=== PATIENT | female | born 1985 | race Caucasian/White ===

== ENCOUNTER 2021-08-24 02:05 | Emergency (ER) | payer OTHER, SELFPAY ==
--- NOTE | ~2021-08-24 | CT_ITS ---
EXAMINATION: CT ABDOMEN AND PELVIS WITHOUT CONTRAST CLINICAL INFORMATION: Right flank pain COMPARISON: None TECHNIQUE: Multidetector volumetric imaging was performed from the superior aspect of the liver through the pubic symphysis. Sagittal and coronal reformatted images were obtained on the technologist's workstation. This CT examination was performed using dose optimization techniques as appropriate, variously including the following: *Automated exposure control *Adjustment of mA and/or kV according to patient size (this includes techniques or standardized protocols for targeted exams where dose is matched to indication/reason for exam; i.e. extremities or head) *Use of iterative reconstruction technique DLP: 902 mGy-cm FINDINGS: LUNG BASES: The visualized lung bases are unremarkable. LIVER, GALLBLADDER, AND BILIARY TREE: The liver is normal in size, shape, and attenuation. No focal hepatic lesion or biliary ductal dilatation is present. The gallbladder is unremarkable with no evidence of radiopaque gallstones, gallbladder wall thickening, or obvious pericholecystic inflammatory changes. PANCREAS: Mild fatty infiltration of the pancreatic parenchyma. No ductal dilatation. SPLEEN: Unremarkable. ADRENAL GLANDS: Unremarkable. KIDNEYS AND URETERS: The kidneys are normal in size, shape, and attenuation. Mild right hydroureteronephrosis. There is a 0.2 cm calculus at the right ureterovesicular junction. No additional calculi. No left hydronephrosis. BLADDER: Decompressed with no gross abnormality. GASTROINTESTINAL TRACT: The stomach is unremarkable. Normal caliber small bowel. No obstruction. No colonic wall thickening or inflammatory change. The appendix is not visualized. ABDOMINAL WALL: No significant hernia is appreciated. LYMPH NODES: Normal. VASCULAR: Unremarkable. PELVIC VISCERA: The uterus and adnexa are unremarkable. OSSEOUS STRUCTURES: Unremarkable. CT/CT abdomen pelvis wo con IMPRESSION: Mild right hydroureteronephrosis with a 0.2 cm calculus at the ureterovesicular junction. Fleischner guidelines were followed.
[2021-08-24 02:14] VITALS: BP 152/92; PULSE 115; RESP 20; TEMP 36.9; O2SAT 100; BMI 30.9
--- NOTE | 2021-08-24 02:37 | ED_ITS ---
HPI - Back Pain/Injury General Chief Complaint: Back Pain/Injury Stated Complaint: lower back pain, vomiting Time Seen by Provider: 08/24/21 02:34 History of Present Illness HPI Narrative: 36-year-old female presents today with having right flank pain radiating to the right lower quadrant. The pain is sharp extreme 10 and 10. Associated with nausea vomiting. No diaphoresis. No change in bowel movement. Patient from home. No cough no congestion or upper respiratory symptoms. No focal weakness. MD elicited complaint: back pain Related Data Previous Rx's Medication Instructions Recorded ibuprofen 400 mg tablet 400 mg PO Q6H PRN #20 tab 08/24/21 ondansetron 4 mg disintegrating 4 mg PO TID PRN 5 Days #10 tab 08/24/21 tablet oxycodone 5 mg tablet 5 mg PO Q8H PRN #7 tab 08/24/21 tamsulosin 0.4 mg capsule (Flomax) 0.4 mg PO DAILY #7 cap 08/24/21 Allergies Allergy/AdvReac Type Severity Reaction Status Date / Time No Known Allergies Allergy Unverified 01/18/20 18:31 [No Known Allergies*] Review of Systems Review of Systems: Positive back pain positive right lower quadrant pain positive nausea. No vomiting. Yes all other systems are reviewed and are negative [facility] Past Medical History Attestation statement: The following information was validated with the patient. Social History Social History Patient : No Physical Exam Vital Signs: Vital Signs: Last Vital Signs Temp 98.4 F 08/24/21 02:14 Pulse 115 H 08/24/21 02:14 Resp 20 08/24/21 02:14 BP 152/92 H 08/24/21 02:14 Pulse Ox 100 08/24/21 02:14 BMI result Body Mass Index 30.9 Appearance: Alert. Oriented X3. No acute distress. Eyes: Pupils equal, round and reactive to light. ENT: Pharynx normal. Neck: Normal inspection. Neck supple. No lymph nodes noted. No crepitus CVS: Normal heart rate and rhythm. Pulses normal. Normal S1 and S2 Respiratory: No respiratory distress. Breath sounds normal. No Wheezing. No rales Abdomen: Soft and nontender. No rigidity. No distention. good BS x4 Skin: Skin warm and dry. Normal skin color. Normal skin turgor. Extremities: No lower extremity edema. Neurovascular intact to all extremities. No Lacerations. No Rash Neuro: Oriented X 3. No motor deficit. No sensory deficit. Moving all extermities. No slurred speech MDM - Back Pain/Injury MDM Narrative Medical decision making narrative: Positive 2 mm kidney stone at the UVJ. Pain is now controlled after pain med ication. Patient creatinine is normal. Will discharge patient home. If urine showed no signs of infection will discharge home Lab Data Result diagrams: 08/24/21 02:45 08/24/21 02:45 Labs: Lab Results 08/24/21 08/24/21 Range/Units 02:45 02:45 WBC 13.0 H (4.8-10.8) X10*3/uL RBC 4.27 (4.20-5.50) X10*6/uL Hgb 12.4 (12.0-16.0) g/dl Hct 35.7 L (37.0-47.0) % MCV 83.6 (80.0-98.0) fL MCH 29.0 (27.0-33.0) pg MCHC 34.7 (31.0-35.0) g/dl RDW 13.2 (11.0-16.0) % Plt Count 270 (160-400) X10*3/uL MPV 9.4 (9.4-12.3) fL Immature Gran % (Auto) 0.2 (0.0-0.4) % Neut % (Auto) 78.2 H (45-73) % Lymph % (Auto) 15.0 L (20-40) % Mcpherson % (Auto) 5.7 (2-11) % Eos % (Auto) 0.7 (0-4) % Baso % (Auto) 0.2 (0-2) % Lymph # (Auto) 2.0 (1.2-4.9) X10*3/uL Mcpherson # (Auto) 0.7 (0.1-1.2) X10*3/uL Eos # (Auto) 0.1 (0.0-0.4) X10*3/uL Baso # (Auto) 0.0 (0.0-0.2) X10*3/uL Abs Immat Gran (auto) 0.03 (0.00-0.03) X10*3/uL Absolute Neuts (auto) 10.1 H (2.0-8.3) x10*3/uL Absolute Nucleated RBC 0.000 (0.0-0.012) X10*3/uL Nucleated RBC % (auto) 0.0 (0.0-0.2) /100WBC Sodium 137 (135-145) mmol/L Potassium 3.6 (3.3-5.1) mmol/L Chloride 104 (96-108) mmol/L Carbon Dioxide 23 (22-29) mmol/L Anion Gap 14 (12-20) BUN 14 (9-16) mg/dL Creatinine 0.82 (0.5-1.4) mg/dL Estim Creat Clear Calc 99.9 Estimated GFR > 60 Random Glucose 125 H (60-115) mg/dL Calcium 9.2 (8.4-10.2) mg/dL Total Bilirubin 0.5 (0.0-1.0) mg/dL Direct Bilirubin < 0.2 (0.0-0.5) mg/dL AST 22 (5-31) U/L ALT 16 (0-31) U/L Alkaline Phosphatase 91 (39-117) U/L Total Protein 7.8 (6.5-8.0) g/dL Albumin 4.3 (3.5-5.0) g/dL Beta HCG, Quant < 2 mIU/mL Discharge Plan Discharge Clinical Impression: Renal colic Patient Disposition: Home, Self-Care Instructions: Renal Colic (ED) Prescriptions: New tamsulosin [Flomax] 0.4 mg capsule 0.4 mg PO DAILY Qty: 7 0RF ibuprofen 400 mg tablet 400 mg PO Q6H PRN (Reason: pain) Qty: 20 0RF ondansetron 4 mg tablet,disintegrating 4 mg PO TID PRN (Reason: nausea and vomiting) 5 Days Qty: 10 0RF oxycodone 5 mg tablet 5 mg PO Q8H PRN (Reason: pain) Qty: 7 0RF Referrals: Anastacio Bender MD [Physician] -
[2021-08-24] MEDS: Ketorolac Tromethamine 30 MG/ML VIAL IVPUSH (03:20)
[2021-08-24] MEDS: ondansetron HCL 4 MG/2 ML VIAL IVPUSH (03:20)
[2021-08-24 03:21] LABS: MANUAL DIFF FLAG NO
[2021-08-24] MEDS: HYDROmorphone HCl 0.5 MG/0.5 ML SYRINGE IVPUSH ×3 (03:21→05:47)
[2021-08-24 03:22] LABS: Basophils Percent Auto 0.2 % (0-2); Eosinophils Absolute Auto 0.1 X10*3/uL (0.0-0.4); Eosinophils Percent Auto 0.7 % (0-4); Hematocrit 35.7 % (37.0-47.0); Hemoglobin 12.4 g/dl (12.0-16.0); Imm Gran Abs Auto 0.03 X10*3/uL (0.00-0.03); Imm Gran Pct Auto 0.2 % (0.0-0.4); Mean Corpuscular HGB Conc 34.7 g/dl (31.0-35.0); Mean Corpuscular Volume 83.6 fL (80.0-98.0); Mean Platelet Volume 9.4 fL (9.4-12.3); Monocytes Absolute Auto 0.7 X10*3/uL (0.1-1.2); Monocytes Percent Auto 5.7 % (2-11); Neutrophils Absolute Auto 10.1 x10*3/uL (2.0-8.3); Neutrophils Percent Auto 78.2 % (45-73); Platelet Count 270 X10*3/uL (160-400); Red Blood Count 4.27 X10*6/uL (4.20-5.50); Red Cell Distribution Width 13.2 % (11.0-16.0)
[2021-08-24] MEDS: 0.9 % Sodium Chloride 1,000 ML 999 ML IV ×2 (03:23→06:28)
[2021-08-24 03:39] LABS: Alanine Aminotransferase 16 U/L (0-31); Albumin Level 4.3 g/dL (3.5-5.0); Alkaline Phosphatase 91 U/L (39-117); Anion Gap 14 (12-20); Aspartate Amino Transferase 22 U/L (5-31); Bilirubin Direct < 0.2 mg/dL (0.0-0.5); Bilirubin Total 0.5 mg/dL (0.0-1.0); Blood Urea Nitrogen 14 mg/dL (9-16); Calcium 9.2 mg/dL (8.4-10.2); Carbon Dioxide 23 mmol/L (22-29); Chloride 104 mmol/L (96-108); Creatinine Clr Calc Pharmacy 99.9; Estimated Glomerular Filt Rate > 60; Glucose Random 125 mg/dL (60-115); Potassium 3.6 mmol/L (3.3-5.1); Sodium 137 mmol/L (135-145); Total Protein 7.8 g/dL (6.5-8.0)
[2021-08-24 04:51] LABS: HCG Quantitative < 2 mIU/mL
[2021-08-24 06:32] VITALS: BP 114/65; PULSE 60; RESP 20; TEMP 36.9; O2SAT 97
[2021-08-24 06:35] LABS: Appearance Urine HAZY; Color Urine DK YELLOW; Glucose Urine UA NEG (NEG); Leukocyte Esterase Urine NEG (NEG); Nitrite Urine NEG (NEG); Specific Gravity - Urine 1.025 (1.005-1.025); UACC Culture Trigger NO; Urine Blood TRACE (NEG); Urine Ketones 15 MG/DL (NEG); Urine Protein NEG (NEG-TRACE)
[2021-08-24 06:36] LABS: UPreg QC Valid YES; Urine Pregnancy NEGATIVE (NEGATIVE)
[2021-08-24 06:41] LABS: Bacteria Urine 1+ /LPF; Calcium Oxalate Crystals Urine 2+ /LPF; Mucus Urine 3+ /LPF; Squamous Epithelial Cell Urine 2+ /LPF; WBC Urine 0 /HPF (0-4)
== END 2021-08-24 07:37 | disposition home or self-care (01) ==
LOC: HO.ED 06:10
PROVIDERS: Emergency Provider Emergency Medicine Emergency Medical Services
DX: N23 Unspecified renal colic (principal); M54.50 Low back pain, unspecified; Z79.899 Other long term (current) drug therapy
CPT/HCPCS: 36415; 74176; 80048; 80076; 81001; 81025; 84702; 85025; 96361; 96374; 96375; 96376; 99283; 99284; J1170; J1885; J2405

== ENCOUNTER 2021-10-14 17:48 | Emergency (ER) | payer OTHER, SELFPAY ==
[2021-10-14 17:58] VITALS: BP 108/57; BP 148/90; PULSE 75; RESP 18; O2SAT 100; O2SAT 99; BMI 34.2
--- NOTE | 2021-10-14 18:27 | HO.SUDE ---
CARE team and diving coach met with pt to complete a substance use disorder evaluation. Pt arrived by ambulance s/p accidental overdose after using 8 bags of opiates intranasal. She reported that she began to feel dizzy and disoriented then self administered bystander narcan and called EMS. Pt reported that this was the first time she has overdosed and was significantly distressed by it, stating that she is freaked out and will never ever use again. Pt has been on methadone for 9 years through [facility] but reported that she has been using heroin for most of the duration. She has no recent history of detox or residential treatment. She is not connected with a diving coach. She sees Yessi at [facility] every other week for DANIAL counseling. Pt declined having any interest in detox or other referrals at this time. Pt reported a family history of opiate use (father) and that she first used during late adolescence because she wanted to understand why her father chose it over her. She shared that her longest period in recovery was ~ 1 year since she started using. She reported that she has 1 daughter with her boyfriend that was removed by DCF at and her daughter has been in a kinship placement with her cousin since joo was 6 weeks old. 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 She shared that her boyfriend also uses and was previously on methadone until he lost his insurance and has not been able to get insurance through his employer until there is an open enrollment period. Pt does not require any further evaluation at this time. She was encouraged to visit the [facility] peer recovery center this week.
--- NOTE | 2021-10-14 18:28 | MHC.RECOVSUP ---
? Reason for consult Recovery Support o Current location: ED[facility] o Identified substance use concern: Heroin - Overdose - Support ? Intervention: o Community resources provided o Harm reduction discussion ? Plan: o Patient to follow up with H after discharge ? Additional information: Patient did not want any services but was able to talk recovery and Harm reduction.. Patient is currently on MAT (Methadone) but is still using...
--- NOTE | 2021-10-14 19:07 | ED.OVERDOSE ---
HPI - Overdose General Chief Complaint: Overdose Stated Complaint: overdose and vomiting Time Seen by Provider: 10/14/21 19:07 Source: patient and EMS Mode of arrival: EMS Limitations: no limitations History of Present Illness HPI Narrative: 36 years old female with history of polysubstance abuse patient also is on methadone, patient used 8 bags of heroin (snorted) today shortly patient felt funny, lightheadedness, dizzy patient self administered Narcan at home, had some nausea and vomiting and call 911, on arrival to the ED patient is wide awake, no SI or HI, no hallucination, patient admitted that she used heroin was incidental overdose. Related Data Previous Rx's Medication Instructions Recorded ibuprofen 400 mg tablet 400 mg PO Q6H PRN pain #20 tabs 08/24/21 ondansetron 4 mg disintegrating 4 mg PO TID PRN nausea and 08/24/21 tablet vomiting 5 days #10 tabs oxycodone 5 mg tablet 5 mg PO Q8H PRN pain #7 tabs 08/24/21 tamsulosin 0.4 mg capsule (Flomax) 0.4 mg PO DAILY #7 caps 08/24/21 Allergies Allergy/AdvReac Type Severity Reaction Status Date / Time No Known Allergies Allergy Unverified 01/18/20 18:31 [No Known Allergies*] Review of Systems Review of Systems: All other systems are reviewed and are negative Constitutional: Reports as per HPI and Reports no additional constitutional complaints Eyes: Reports as per HPI and Reports no additional eye complaints Reports system reviewed and no additional complaints, except as documented Cardiovascular: Reports as per HPI and Reports no additional cardiovascular complaints Respiratory: Reports as per HPI and Reports no additional respiratory complaints Gastrointestinal: Reports as per HPI and Reports no additional gastrointestinal complaints Genitourinary: Reports no additional female genitourinary complaints Musculoskeletal: Reports no additional musculoskeletal complaints Skin/Breast: Reports system reviewed and no additional complaints, except as docu Psychiatric: Reports no additional psychiatric complaints Endocrine: Reports no additional endocrine complaints Hematologic/Lymphatic: Reports no additional hematologic/lymphatic complaints Allergic/Immunologic: Reports no additional allergic/immunologic complaints Reports system reviewed and no additional complaints, except as documented and Reports Abnormal speech present PMFSH Social History Social History Advance Directives: No Advance Directives Information Provided: No Physical Exam Vital Signs: Vital Signs: Last Vital Signs Pulse 75 10/14/21 17:58 Resp 18 10/14/21 17:58 BP 108/57 L 10/14/21 17:58 Pulse Ox 100 10/14/21 17:58 O2 Del Method 10/14/21 17:58 BMI result Body Mass Index 34.2 Vital signs have been reviewed as appeared to be correct. Blood pressure normal. Heart rate normal. Respiration rate normal. Temperature normal. Oxygen saturation normal. Appearance: Alert. Oriented X3. No acute distress. Head: Normal external exam. Normocephalic. Atraumatic. No Arreguin signs noted. No raccoon eyes noted Eyes: PERRLA. EOMI. Conjunctiva and sclera normal. Eyelids normal. ENT: TM's Normal. Pharynx normal. Uvula midline. Moist mucous membranes. No trismus noted. No drooling noted. No muffled voice noted. Neck: Normal inspection. Neck supple. FROM. No adenopathy. Thyroid Normal. No meningeal signs. No neck mass noted. CVS: Normal heart rate and rhythm. Heart sound normal. No murmurs noted. Pulses normal throughout. Respiratory: No respiratory distress. Painless inspiration. Breath sounds normal. No wheezes/rales/rhonchi noted. Chest nontender. No accessory muscle usage noted or decreased air movement noted. Abdomen: Soft and nontender. Bowel sounds normal in all 4 quadrants. No distention noted. No organomegaly noted. No visible injury noted. Back: No CVA tenderness. Full range of motion noted. Skin: Skin warm and dry. Normal skin color. Normal skin turgor. No rashes/lesions/lacerations noted. Extremities: No lower extremity edema. Extremities exhibit normal range of motion. Extremities nontender. Neuro: Oriented X 3. Cranial nerve exam: II-XII are grossly intact No motor deficit. No sensory deficit. Reflexes normal. Patient Orientation: Person, Place, Time and Situation Level of Consciousness: Awake, Appropriate and Alert Patient Behavior: Appropriate, Guarded, Cooperative and Anxious Mood Description: Constricted, Blunted and Apprehensive Affect Description: Constricted, Blunted and Apprehensive Patient Cognition Impaired: No Ability to Follow Directions: Excellent Speech Pattern: Clear, Appropriate and Spontaneous Speech Memory Description: Intact, Immediate Intact and Short Term Intact Hallucinations: None Delusions: Not Present Thought Process: Intact Thought Content: positive for Intact, positive for Logical, denies Suicidal Ideation and denies Homicidal Ideation. Depressive Symptoms: Not present Judgement: Good Judgement and Insight: Intact Course Course Course Narrative: Assessment and plan. 36-year-old female self administered Narcan after using 8 bags of heroin, patient was watching the emergency department for over an hour patient remained awake with stable vital sign, care team a life skills coordinator input is appreciated, will provide and Narcan to take home. Discharge Plan Discharge Clinical Impression: Drug overdose Patient Disposition: Home, Self-Care Instructions: Adult Overdose (ED), Opioid Use Disorder (ED) Prescriptions: No Action tamsulosin [Flomax] 0.4 mg capsule 0.4 mg PO DAILY Qty: 7 0RF ibuprofen 400 mg tablet 400 mg PO Q6H PRN (Reason: pain) Qty: 20 0RF ondansetron 4 mg tablet,disintegrating 4 mg PO TID PRN (Reason: nausea and vomiting) 5 Days Qty: 10 0RF oxycodone 5 mg tablet 5 mg PO Q8H PRN (Reason: pain) Qty: 7 0RF Referrals: Physician,None [Primary Care Provider] -
== END 2021-10-14 19:26 | disposition home or self-care (01) ==
PROVIDERS: Emergency Provider Emergency Medicine
DX: T40.1X1A Poisoning by heroin, accidental (unintentional), initial encounter (principal); Y92.039 Unspecified place in apartment as the place of occurrence of the external cause; F19.10 Other psychoactive substance abuse, uncomplicated; F11.20 Opioid dependence, uncomplicated
CPT/HCPCS: 99281; 99282

== ENCOUNTER 2022-01-20 22:31 | Emergency (ER) | payer OTHER, SELFPAY ==
--- NOTE | 2022-01-20 | ECG_ITS ---
Test Reason : DIZZINESS Blood Pressure : / mmHG Vent. Rate : 085 BPM Atrial Rate : 085 BPM P-R Int : 164 ms QRS Dur : 078 ms QT Int : 438 ms P-R-T Axes : 025 013 020 degrees QTc Int : 521 ms Normal sinus rhythm Nonspecific T wave abnormality Prolonged QT Abnormal ECG No previous ECGs available Referred By: Generic ED Physician Electronically Signed By:CHARLES GREENFIELD
--- NOTE | ~2022-01-20 | XR_ITS ---
EXAMINATION: XR CHEST CLINICAL INFORMATION: Shortness of breath COMPARISON: Chest x-ray 04/21/2014 TECHNIQUE: Frontal view of the chest was obtained. FINDINGS: No significant abnormality is noted involving the heart, lungs, mediastinum, bony thorax or soft tissues. XR/XR chest 1V IMPRESSION: Unremarkable examination.
[2022-01-20 22:55] VITALS: BP 113/74; PULSE 91; RESP 18; TEMP 36.4; O2SAT 96; BMI 31.4
[2022-01-20 23:39] LABS: COVID-19 Test Negative (Negative)
== END 2022-01-21 02:18 | disposition left against medical advice (07) ==
PROVIDERS: Emergency Provider Emergency Medicine
DX: R53.1 Weakness (principal); R11.10 Vomiting, unspecified; R42 Dizziness and giddiness; R94.31 Abnormal electrocardiogram [ECG] [EKG]; Z20.822 Contact with and (suspected) exposure to COVID-19
CPT/HCPCS: 71045; 87635; 93005; 99283

== ENCOUNTER 2022-04-19 15:44 | Emergency (ER) | payer OTHER, SELFPAY ==
--- NOTE | ~2022-04-19 | US_ITS ---
EXAMINATION: US ABDOMEN LIMITED CLINICAL INFORMATION: Left chest, rib, back, abdominal pain. COMPARISON: CT abdomen pelvis 08/24/2021 TECHNIQUE: Real-time imaging of the right upper quadrant abdominal viscera. FINDINGS: PANCREAS: The majority of the pancreas is obscured by bowel gas. The visualized pancreatic neck is normal. LIVER: Limited visualization of the liver due to body habitus. The liver is normal in size. The liver contour is normal. Parenchymal echogenicity is normal. No focal hepatic lesion. There is no intrahepatic biliary duct dilatation seen. GALLBLADDER: Normal. The gallbladder is physiologically distended without evidence of stones, sludge, polyps, wall thickening or pericholecystic fluid. COMMON BILE DUCT: Common bile duct upper limits of normal in caliber, 0.7 cm in diameter. RIGHT KIDNEY: Normal. No hydronephrosis. No renal calculi or focal parenchymal lesions. The kidney measures 9.7 cm in maximum dimension. FREE FLUID: None. US/US abdomen limited IMPRESSION: Study limited by body habitus. Pancreas largely obscured by bowel gas. No acute abnormality seen.
--- NOTE | ~2022-04-19 | XR_ITS ---
EXAMINATION: XR CHEST CLINICAL INFORMATION: Heart burn with left chest, rib and back pain COMPARISON: 01/20/2022 TECHNIQUE: 2 views of the chest were obtained. FINDINGS: No significant abnormality is noted involving the heart, lungs, mediastinum, bony thorax or soft tissues. XR/XR chest 2V IMPRESSION: Unremarkable examination.
[2022-04-19 16:26] VITALS: BP 133/81; PULSE 76; RESP 18; TEMP 37.2; O2SAT 100
--- NOTE | 2022-04-19 16:28 | ED_ITS ---
HPI - General Adult General Chief complaint: Abdominal Pain <SUNI Martinez - Last Filed: 04/19/22 16:33> Stated complaint: heart burn, upper abd pain <SUNI Martinez - Last Filed: 04/19/22 16:33> Time Seen by Provider: 04/19/22 19:55 <SUNI Martinez - Last Filed: 04/19/22 16:33> Source: patient <Roberto Du MD - Last Filed: 04/19/22 21:38> Limitations: no limitations <Roberto Du MD - Last Filed: 04/19/22 21:38> History of Present Illness HPI narrative: This is a 37-year-old female complains of indigestion and heartburn for about a week. Patient states she has also had 4 appetite and has lost weight. She has also noted some separate pain in her left lower abdomen and left flank off and on that started a few days after the indigestion. She does have history of kidney stones but says that this pain is not nearly as severe as kidney stone pain. She denies any fever. She denies any shortness of breath she denies any cough. She denies any vomiting. Bowel movements have been normal. She denies any dysuria, urinary frequency, hematuria. She is on medications for anxiety, has a prior history of panic attacks <Roberto Du MD - Last Filed: 04/19/22 21:38> Related Data Home medications: Previous Rx's Medication Instructions Recorded ibuprofen 400 mg tablet 400 mg PO Q6H PRN pain #20 tabs 08/24/21 ondansetron 4 mg disintegrating 4 mg PO TID PRN nausea and 08/24/21 tablet vomiting 5 days #10 tabs oxycodone 5 mg tablet 5 mg PO Q8H PRN pain #7 tabs 08/24/21 tamsulosin 0.4 mg capsule (Flomax) 0.4 mg PO DAILY #7 caps 08/24/21 <SUNI Martinez - Last Filed: 04/19/22 16:33> Allergies/adverse reactions: Allergies Allergy/AdvReac Type Severity Reaction Status Date / Time No Known Allergies Allergy Verified 01/20/22 22:55 [No Known Allergies*] <SUNI Martinez - Last Filed: 04/19/22 16:33> Review of Systems Review of Systems: Yes all other systems are reviewed and are negative <Roberto Du MD - Last Filed: 04/19/22 21:38> Constitutional: Constitutional: Reports as per HPI and Denies fever(s) <Roberto Du MD - Last Filed: 04/19/22 21:38> Eyes: Eyes: Reports as per HPI and Reports no additional eye complaints <Roberto Du MD - Last Filed: 04/19/22 21:38> ENT: Reports system reviewed and no additional complaints, except as d ocumented, Reports as per HPI, Denies nasal congestion, Denies nasal discharge and Denies sore throat <Roberto Du MD - Last Filed: 04/19/22 21:38> Cardiovascular: Cardiovascular: Reports as per HPI, Denies chest pain and Denies dyspnea <Roberto Du MD - Last Filed: 04/19/22 21:38> Respiratory: Respiratory: Reports as per HPI, Denies cough and Denies dyspnea <Roberto Du MD - Last Filed: 04/19/22 21:38> Gastrointestinal: Gastrointestinal: Reports as per HPI, Denies abdominal pain (Indigestion), Denies constipation, Denies diarrhea and Denies vomiting <Roberto Du MD - Last Filed: 04/19/22 21:38> Genitourinary: Genitourinary: Reports as per HPI, Denies hematuria, Denies urinary frequency and Denies dysuria <Roberto Du MD - Last Filed: 04/19/22 21:38> Comments: Flank pain <Roberto Du MD - Last Filed: 04/19/22 21:38> Musculoskeletal: Musculoskeletal: Reports no additional musculoskeletal complaints and Denies numbness <Roberto Du MD - Last Filed: 04/19/22 21:38> Integumentary/Breasts: Skin/Breast: Reports as per HPI and Denies rash <Roberto Du MD - Last Filed: 04/19/22 21:38> Neurologic: Reports as per HPI, Denies focal weakness and Denies numbness <Roberto Du MD - Last Filed: 04/19/22 21:38> Psychiatric: Psychiatric: Reports no additional psychiatric complaints and Re ports as per HPI <Roberto Du MD - Last Filed: 04/19/22 21:38> Endocrine: Endocrine: Reports no additional endocrine complaints and Reports as per HPI <Roberto Du MD - Last Filed: 04/19/22 21:38> Hematologic/Lymphatic: Hematologic/Lymphatic: Reports no additional hematologic/lymphatic complaints, Reports as per HPI and Reports other (No peripheral edema) <Roberto Du MD - Last Filed: 04/19/22 21:38> [facility] Social History Social History: Social History Advance Directives: No Advance Directives Information Provided: No <SUNI Martinez - Last Filed: 04/19/22 16:33> Physical Exam ED Vital Signs: Vital Signs - 24 hr 04/19/22 16:26 Temperature 98.9 F Pulse Rate 76 Respiratory Rate 18 Blood Pressure 133/81 Pulse Oximetry 100 Oxygen Delivery Method Room Air BMI result Body Mass Index 30.0 <SUNI Martinez - Last Filed: 04/19/22 16:33> Vital Signs - 24 hr 04/19/22 16:26 Temperature 98.9 F Pulse Rate 76 Respiratory Rate 18 Blood Pressure 133/81 Pulse Oximetry 100 Oxygen Delivery Method Room Air BMI result Body Mass Index 30.0 <Roberto Du MD - Last Filed: 04/19/22 21:38> Const Other: Patient not ill appearing, easily goes from sitting position to lying down on the gurney. <Roberto Du MD - Last Filed: 04/19/22 21:38> General: no acute distress <Roberto Du MD - Last Filed: 04/19/22 21:38> Orientation/consciousness: patient oriented x3 <Roberto Du MD - Last Filed: 04/19/22 21:38> HENMT Head: Yes normal to inspection <Roberto Du MD - Last Filed: 04/19/22 21:38> General nose exam: Normal external nose present <Roberto Du MD - Last Filed: 04/19/22 21:38> Mouth: moist mucous membranes <Roberto Du MD - Last Filed: 04/19/22 21:38> Throat: Yes posterior oropharynx normal, Yes tonsils normal and Yes uvula midline <Roberto Du MD - Last Filed: 04/19/22 21:38> Eyes Eyelids: Yes eyelids normal <Roberto Du MD - Last Filed: 04/19/22 21:38> Conjunctivae: conjunctivae normal <Roberto Du MD - Last Filed: 04/19/22 21:38> Pupils: Equal, round and reactive pupils present <Roberto Du MD - Last Filed: 04/19/22 21:38> Neck Neck: Yes supple <Roberto Du MD - Last Filed: 04/19/22 21:38> Resp Effort & Inspection: normal respiratory effort <Roberto Du MD - Last Filed: 04/19/22 21:38> Auscultation: clear to auscultation bilaterally <Roberto Du MD - Last Filed: 04/19/22 21:38> Cardio Rate: regular rate <Roberto Du MD - Last Filed: 04/19/22 21:38> Rhythm: regular rhythm <Roberto Du MD - Last Filed: 04/19/22 21:38> Heart sounds: S1 normal heart sound present, S2 normal heart sound present, no gallops, no murmurs and no rubs <Roberto Du MD - Last Filed: 04/19/22 21:38> GI Inspection: No distended <Roberto Du MD - Last Filed: 04/19/22 21:38> Palpation (GI): Soft to palpation and nontender <Roberto Du MD - Last Filed: 04/19/22 21:38> Auscultation: normal bowel sounds <Roberto Du MD - Last Filed: 04/19/22 21:38> Skin General skin exam: other (Warm and dry) <Roberto Du MD - Last Filed: 04/19/22 21:38> Neuro General: patient oriented x3 and CN's II-XI intact bilaterally <Roberto Du MD - Last Filed: 04/19/22 21:38> Cranial nerves: Yes Equal, round and reactive pupils present <Roberto Du MD - Last Filed: 04/19/22 21:38> Extrem General: Yes no pedal edema <Roberto Du MD - Last Filed: 04/19/22 21:38> Psych Affect: normal affect <Roberto Du MD - Last Filed: 04/19/22 21:38> Attitude: cooperative <Roberto Du MD - Last Filed: 04/19/22 21:38> Course Course Course Narrative: RME-16:30PM 37yoF presenting to the ED with complaints of possible heart burn x1 week. Reports that the area that it is hurting it is in the lower left anterior chest/rib/back area that is intermittent. She reports when it does, it is very strong. She reports she has associated nausea. This pain comes on even when she is not eating. She denies any fevers, cough, shortness of breath, vomiting, diarrhea constipation, dysuria or any other symptoms complaints or concerns at this time. 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 Denies any recent drug usage such as cocaine. Plan: Labs, EKG, chest x-ray, abdominal ultrasound. Patient is stable to go back to the waiting room to be evaluated in ED <SUNI Martinez - Last Filed: 04/19/22 16:33> Medications Administered Discontinued Medications Generic Name Dose Route Start Last Admin Trade Name Freq PRN Reason Stop Dose Admin Al Hydroxide/Mg Hydroxide 30 ml 04/19/22 20:16 04/19/22 20:57 Magnesium Hydrox/Alum Hydrox 30 Ml Oral.Susp PO 04/19/22 20:17 30 ml ONCE ONE Administration Lorazepam 1 mg 04/19/22 20:16 04/19/22 20:57 Lorazepam 1 Mg Tablet PO 04/19/22 20:17 1 mg ONCE ONE Administration Omeprazole 40 mg 04/19/22 20:16 04/19/22 20:57 Omeprazole 40 Mg Capsule. PO 04/19/22 20:17 40 mg ONCE ONE Administration <SUNI Martinez - Last Filed: 04/19/22 16:33> Medications Administered Discontinued Medications Generic Name Dose Route Start Last Admin Trade Name Freq PRN Reason Stop Dose Admin Al Hydroxide/Mg Hydroxide 30 ml 04/19/22 20:16 04/19/22 20:57 Magnesium Hydrox/Alum Hydrox 30 Ml Oral.Susp PO 04/19/22 20:17 30 ml ONCE ONE Administration Lorazepam 1 mg 04/19/22 20:16 04/19/22 20:57 Lorazepam 1 Mg Tablet PO 04/19/22 20:17 1 mg ONCE ONE Administration Omeprazole 40 mg 04/19/22 20:16 04/19/22 20:57 Omeprazole 40 Mg Capsule. PO 04/19/22 20:17 40 mg ONCE ONE Administration <Roberto Du MD - Last Filed: 04/19/22 21:38> Medical Decision Making Medical Decision Making [facility] Narrative: Patient was given Maalox, omeprazole 40 mg p.o., lorazepam 1 mg p.o.. She had from her symptoms and left prior to receiving discharge papers. <Roberto Du MD - Last Filed: 04/19/22 21:38> Differential Diagnosis Differential Diagnoses: The differential diagnosis associated with the presentation includes <Roberto Du MD - Last Filed: 04/19/22 21:38> Peptic ulcer disease, gastritis, pancreatitis, anxiety, renal colic, myocardial infarction <Roberto Du MD - Last Filed: 04/19/22 21:38> Lab Data [facility] Lab Attestation statement: I reviewed the patient's lab results. <Roberto Du MD - Last Filed: 04/19/22 21:38> Result Diagrams: : 04/19/22 17:16 04/19/22 17:16 <SUNI Martinez - Last Filed: 04/19/22 16:33> Labs: Lab Results 04/19/22 04/19/22 04/19/22 Range/Units 17:15 17:15 17:16 WBC 6.0 (4.8-10.8) X10*3/uL RBC 4.35 (4.20-5.50) X10*6/uL Hgb 12.8 (12.0-16.0) g/dl Hct 37.9 (37.0-47.0) % MCV 87.1 (80.0-98.0) fL MCH 29.4 (27.0-33.0) pg MCHC 33.8 (31.0-35.0) g/dl RDW 12.5 (11.0-16.0) % Plt Count 252 (160-400) X10*3/uL MPV 10.2 (9.4-12.3) fL Immature Gran % (Auto) 0.3 (0.0-0.4) % Neut % (Auto) 55.3 (45-73) % Lymph % (Auto) 33.7 (20-40) % [place] % (Auto) 8.9 (2-11) % Eos % (Auto) 1.3 (0-4) % Baso % (Auto) 0.5 (0-2) % Lymph # (Auto) 2.0 (1.2-4.9) X10*3/uL [place] # (Auto) 0.5 (0.1-1.2) X10*3/uL Eos # (Auto) 0.1 (0.0-0.4) X10*3/uL Baso # (Auto) 0.0 (0.0-0.2) X10*3/uL Abs Immat Gran (auto) 0.02 (0.00-0.03) X10*3/uL Absolute Neuts (auto) 3.3 (2.0-8.3) x10*3/uL Absolute Nucleated RBC 0.000 (0.0-0.012) X10*3/uL Nucleated RBC % (auto) 0.0 (0.0-0.2) /100WBC PT 13.2 H (10.0-13.1) SEC INR 1.1 (0.9-1.1) Sodium (135-145) mmol/L Potassium (3.3-5.1) mmol/L Chloride (96-108) mmol/L Carbon Dioxide (22-29) mmol/L Anion Gap (12-20) BUN (9-16) mg/dL Creatinine (0.5-1.4) mg/dL Estim Creat Clear Calc Estimated GFR Random Glucose (60-115) mg/dL Calcium (8.4-10.2) mg/dL Magnesium (1.6-2.6) mg/dL Total Bilirubin (0.0-1.0) mg/dL AST (5-31) U/L ALT (0-31) U/L Alkaline Phosphatase (39-117) U/L Total Protein (6.5-8.0) g/dL Albumin (3.5-5.0) g/dL Lipase 8 (8-78) U/L Beta HCG, Quant < 2 mIU/mL Urine Color Urine Appearance Urine pH (5.0-9.0) Ur Specific [place] (1.005-1.025) Urine Protein (Neg-Trace) mg/dL Urine Glucose (UA) (Negative) mg/dL Urine Ketones (Negative) mg/dL Urine Blood (Negative) Urine Nitrite (Negative) Ur Leukocyte Esterase (Negative) Influenza Type A (PCR) (Negative) Influenza Type B (PCR) (Negative) RSV RNA Qual (PCR) (Negative) SARS-CoV-2 RNA (RT-PCR) (Negative) 04/19/22 04/19/22 04/19/22 Range/Units 17:16 17:16 17:52 WBC (4.8-10.8) X10*3/uL RBC (4.20-5.50) X10*6/uL Hgb (12.0-16.0) g/dl Hct (37.0-47.0) % MCV (80.0-98.0) fL MCH (27.0-33.0) pg MCHC (31.0-35.0) g/dl RDW (11.0-16.0) % Plt Count (160-400) X10*3/uL MPV (9.4-12.3) fL Immature Gran % (Auto) (0.0-0.4) % Neut % (Auto) (45-73) % Lymph % (Auto) (20-40) % [place] % (Auto) (2-11) % Eos % (Auto) (0-4) % Baso % (Auto) (0-2) % Lymph # (Auto) (1.2-4.9) X10*3/uL [place] # (Auto) (0.1-1.2) X10*3/uL Eos # (Auto) (0.0-0.4) X10*3/uL Baso # (Auto) (0.0-0.2) X10*3/uL Abs Immat Gran (auto) (0.00-0.03) X10*3/uL Absolute Neuts (auto) (2.0-8.3) x10*3/uL Absolute Nucleated RBC (0.0-0.012) X10*3/uL Nucleated RBC % (auto) (0.0-0.2) /100WBC PT (10.0-13.1) SEC INR (0.9-1.1) Sodium 140 (135-145) mmol/L Potassium 4.6 D (3.3-5.1) mmol/L Chloride 106 (96-108) mmol/L Carbon Dioxide 26 (22-29) mmol/L Anion Gap 13 (12-20) BUN 10 (9-16) mg/dL Creatinine 0.71 (0.5-1.4) mg/dL Estim Creat Clear Calc 112.7 Estimated GFR > 60 Random Glucose 79 (60-115) mg/dL Calcium 9.3 (8.4-10.2) mg/dL Magnesium 2.2 (1.6-2.6) mg/dL Total Bilirubin 0.4 (0.0-1.0) mg/dL AST 18 (5-31) U/L ALT 15 (0-31) U/L Alkaline Phosphatase 88 (39-117) U/L Total Protein 7.6 (6.5-8.0) g/dL Albumin 4.7 (3.5-5.0) g/dL Lipase (8-78) U/L Beta HCG, Quant mIU/mL Urine Color Yellow Urine Appearance Clear Urine pH 5.5 (5.0-9.0) Ur Specific [place] 1.010 (1.005-1.025) Urine Protein Negative (Neg-Trace) mg/dL Urine Glucose (UA) Negative (Negative) mg/dL Urine Ketones Negative (Negative) mg/dL Urine Blood Negative (Negative) Urine Nitrite Negative (Negative) Ur Leukocyte Esterase Negative (Negative) Influenza Type A (PCR) NEGATIVE (Negative) Influenza Type B (PCR) NEGATIVE (Negative) RSV RNA Qual (PCR) NEGATIVE (Negative) SARS-CoV-2 RNA (RT-PCR) NEGATIVE (Negative) <SUNI Martinez - Last Filed: 04/19/22 16:33> Lab Results 04/19/22 04/19/22 04/19/22 Range/Units 17:15 17:15 17:16 WBC 6.0 (4.8-10.8) X10*3/uL RBC 4.35 (4.20-5.50) X10*6/uL Hgb 12.8 (12.0-16.0) g/dl Hct 37.9 (37.0-47.0) % MCV 87.1 (80.0-98.0) fL MCH 29.4 (27.0-33.0) pg MCHC 33.8 (31.0-35.0) g/dl RDW 12.5 (11.0-16.0) % Plt Count 252 (160-400) X10*3/uL MPV 10.2 (9.4-12.3) fL Immature Gran % (Auto) 0.3 (0.0-0.4) % Neut % (Auto) 55.3 (45-73) % Lymph % (Auto) 33.7 (20-40) % [place] % (Auto) 8.9 (2-11) % Eos % (Auto) 1.3 (0-4) % Baso % (Auto) 0.5 (0-2) % Lymph # (Auto) 2.0 (1.2-4.9) X10*3/uL [place] # (Auto) 0.5 (0.1-1.2) X10*3/uL Eos # (Auto) 0.1 (0.0-0.4) X10*3/uL Baso # (Auto) 0.0 (0.0-0.2) X10*3/uL Abs Immat Gran (auto) 0.02 (0.00-0.03) X10*3/uL Absolute Neuts (auto) 3.3 (2.0-8.3) x10*3/uL Absolute Nucleated RBC 0.000 (0.0-0.012) X10*3/uL Nucleated RBC % (auto) 0.0 (0.0-0.2) /100WBC PT 13.2 H (10.0-13.1) SEC INR 1.1 (0.9-1.1) Sodium (135-145) mmol/L Potassium (3.3-5.1) mmol/L Chloride (96-108) mmol/L Carbon Dioxide (22-29) mmol/L Anion Gap (12-20) BUN (9-16) mg/dL Creatinine (0.5-1.4) mg/dL Estim Creat Clear Calc Estimated GFR Random Glucose (60-115) mg/dL Calcium (8.4-10.2) mg/dL Magnesium (1.6-2.6) mg/dL Total Bilirubin (0.0-1.0) mg/dL AST (5-31) U/L ALT (0-31) U/L Alkaline Phosphatase (39-117) U/L Total Protein (6.5-8.0) g/dL Albumin (3.5-5.0) g/dL Lipase 8 (8-78) U/L Beta HCG, Quant < 2 mIU/mL Urine Color Urine Appearance Urine pH (5.0-9.0) Ur Specific [place] (1.005-1.025) Urine Protein (Neg-Trace) mg/dL Urine Glucose (UA) (Negative) mg/dL Urine Ketones (Negative) mg/dL Urine Blood (Negative) Urine Nitrite (Negative) Ur Leukocyte Esterase (Negative) Influenza Type A (PCR) (Negative) Influenza Type B (PCR) (Negative) RSV RNA Qual (PCR) (Negative) SARS-CoV-2 RNA (RT-PCR) (Negative) 04/19/22 04/19/22 04/19/22 Range/Units 17:16 17:16 17:52 WBC (4.8-10.8) X10*3/uL RBC (4.20-5.50) X10*6/uL Hgb (12.0-16.0) g/dl Hct (37.0-47.0) % MCV (80.0-98.0) fL MCH (27.0-33.0) pg MCHC (31.0-35.0) g/dl RDW (11.0-16.0) % Plt Count (160-400) X10*3/uL MPV (9.4-12.3) fL Immature Gran % (Auto) (0.0-0.4) % Neut % (Auto) (45-73) % Lymph % (Auto) (20-40) % [place] % (Auto) (2-11) % Eos % (Auto) (0-4) % Baso % (Auto) (0-2) % Lymph # (Auto) (1.2-4.9) X10*3/uL [place] # (Auto) (0.1-1.2) X10*3/uL Eos # (Auto) (0.0-0.4) X10*3/uL Baso # (Auto) (0.0-0.2) X10*3/uL Abs Immat Gran (auto) (0.00-0.03) X10*3/uL Absolute Neuts (auto) (2.0-8.3) x10*3/uL Absolute Nucleated RBC (0.0-0.012) X10*3/uL Nucleated RBC % (auto) (0.0-0.2) /100WBC PT (10.0-13.1) SEC INR (0.9-1.1) Sodium 140 (135-145) mmol/L Potassium 4.6 D (3.3-5.1) mmol/L Chloride 106 (96-108) mmol/L Carbon Dioxide 26 (22-29) mmol/L Anion Gap 13 (12-20) BUN 10 (9-16) mg/dL Creatinine 0.71 (0.5-1.4) mg/dL Estim Creat Clear Calc 112.7 Estimated GFR > 60 Random Glucose 79 (60-115) mg/dL Calcium 9.3 (8.4-10.2) mg/dL Magnesium 2.2 (1.6-2.6) mg/dL Total Bilirubin 0.4 (0.0-1.0) mg/dL AST 18 (5-31) U/L ALT 15 (0-31) U/L Alkaline Phosphatase 88 (39-117) U/L Total Protein 7.6 (6.5-8.0) g/dL Albumin 4.7 (3.5-5.0) g/dL Lipase (8-78) U/L Beta HCG, Quant mIU/mL Urine Color Yellow Urine Appearance Clear Urine pH 5.5 (5.0-9.0) Ur Specific [place] 1.010 (1.005-1.025) Urine Protein Negative (Neg-Trace) mg/dL Urine Glucose (UA) Negative (Negative) mg/dL Urine Ketones Negative (Negative) mg/dL Urine Blood Negative (Negative) Urine Nitrite Negative (Negative) Ur Leukocyte Esterase Negative (Negative) Influenza Type A (PCR) NEGATIVE (Negative) Influenza Type B (PCR) NEGATIVE (Negative) RSV RNA Qual (PCR) NEGATIVE (Negative) SARS-CoV-2 RNA (RT-PCR) NEGATIVE (Negative) <Roberto Du MD - Last Filed: 04/19/22 21:38> Independent Interpretation I performed an independent interpretation of an: EKG <Roberto Du MD - Last Filed: 04/19/22 21:38> Interpretation: Normal sinus rhythm with a rate of 76. Nonspecific T-wave abnormalities, improved from prior dated 01/20/2022. <Roberto Du MD - Last Filed: 04/19/22 21:38> Radiology Impression Discussion of test interpretation with radiology: I have reviewed the radiologist's reading. <Roberto Du MD - Last Filed: 04/19/22 21:38> Radiologist Impression: Abdominal ultrasound:IMPRESSION: Study limited by body habitus. Pancreas largely obscured by bowel gas. No acute abnormality seen. Chest x-ray: No acute disease <Roberto Du MD - Last Filed: 04/19/22 21:38> Tests considered The following testing was considered but not selected: CT abdomen and pelvis <Roberto Du MD - Last Filed: 04/19/22 21:38> Chronic Conditions Patient?s care impacted by: Other (Anxiety) <Roberto Du MD - Last Filed: 04/19/22 21:38> Discharge Plan Discharge Clinical Impression: Indigestion, Abdominal pain <SUNI Martinez - Last Filed: 04/19/22 16:33> Patient Disposition: Home, Self-Care <SUNI Martinez - Last Filed: 04/19/22 16:33> Instructions: Indigestion (ED), Abdominal Pain (ED) <SUNI Martinez - Last Filed: 04/19/22 16:33> Additional Instructions: Use antacid such as Maalox. Follow up with your primary care physician. <SUNI Martinez - Last Filed: 04/19/22 16:33> Prescriptions: No Action tamsulosin [Flomax] 0.4 mg capsule 0.4 mg PO DAILY Qty: 7 0RF ibuprofen 400 mg tablet 400 mg PO Q6H PRN (Reason: pain) Qty: 20 0RF ondansetron 4 mg tablet,disintegrating 4 mg PO TID PRN (Reason: nausea and vomiting) 5 Days Qty: 10 0RF oxycodone 5 mg tablet 5 mg PO Q8H PRN (Reason: pain) Qty: 7 0RF <SUNI Martinez - Last Filed: 04/19/22 16:33>
--- NOTE | 2022-04-19 16:28 | ECG_ITS ---
Test Reason : ABD PAIN Blood Pressure : / mmHG Vent. Rate : 076 BPM Atrial Rate : 076 BPM P-R Int : 146 ms QRS Dur : 078 ms QT Int : 400 ms P-R-T Axes : 059 027 037 degrees QTc Int : 450 ms Normal sinus rhythm Nonspecific T wave abnormality Abnormal ECG When compared with ECG of 20-JAN-2022 23:03, Nonspecific T wave abnormality, improved in Lateral leads QT has shortened Referred By: Lolis Franz Electronically Signed By:Jorge Catherine
[2022-04-19 17:23] LABS: Basophils Percent Auto 0.5 % (0-2); Eosinophils Absolute Auto 0.1 X10*3/uL (0.0-0.4); Eosinophils Percent Auto 1.3 % (0-4); Hematocrit 37.9 % (37.0-47.0); Hemoglobin 12.8 g/dl (12.0-16.0); Imm Gran Abs Auto 0.02 X10*3/uL (0.00-0.03); Imm Gran Pct Auto 0.3 % (0.0-0.4); Lymphocytes Percent Auto 33.7 % (20-40); MANUAL DIFF FLAG NO; Mean Corpuscular HGB Conc 33.8 g/dl (31.0-35.0); Mean Corpuscular Hemoglobin 29.4 pg (27.0-33.0); Mean Corpuscular Volume 87.1 fL (80.0-98.0); Mean Platelet Volume 10.2 fL (9.4-12.3); Monocytes Absolute Auto 0.5 X10*3/uL (0.1-1.2); Monocytes Percent Auto 8.9 % (2-11); Neutrophils Absolute Auto 3.3 x10*3/uL (2.0-8.3); Neutrophils Percent Auto 55.3 % (45-73); Platelet Count 252 X10*3/uL (160-400); Red Blood Count 4.35 X10*6/uL (4.20-5.50); Red Cell Distribution Width 12.5 % (11.0-16.0)
[2022-04-19 17:29] LABS: INTERNATIONAL NORM RATIO 1.1 (0.9-1.1); Prothrombin Time 13.2 SEC (10.0-13.1)
[2022-04-19 17:37] LABS: Alanine Aminotransferase 15 U/L (0-31); Albumin Level 4.7 g/dL (3.5-5.0); Alkaline Phosphatase 88 U/L (39-117); Anion Gap 13 (12-20); Aspartate Amino Transferase 18 U/L (5-31); Bilirubin Total 0.4 mg/dL (0.0-1.0); Blood Urea Nitrogen 10 mg/dL (9-16); Calcium 9.3 mg/dL (8.4-10.2); Carbon Dioxide 26 mmol/L (22-29); Chloride 106 mmol/L (96-108); Creatinine Clr Calc Pharmacy 112.7; Estimated Glomerular Filt Rate > 60; Glucose Random 79 mg/dL (60-115); Magnesium 2.2 mg/dL (1.6-2.6); Potassium 4.6 mmol/L (3.3-5.1); Sodium 140 mmol/L (135-145); Total Protein 7.6 g/dL (6.5-8.0)
[2022-04-19 17:48] LABS: HCG Quantitative < 2 mIU/mL; Lipase 8 U/L (8-78)
[2022-04-19 18:00] LABS: Influenza A PCR NEGATIVE (Negative); Influenza B PCR NEGATIVE (Negative); Resp Syncy Virus RNA Qual PCR NEGATIVE (Negative); SARS COV2 PCR INHOUSE NEGATIVE (Negative)
[2022-04-19 18:02] LABS: Appearance Urine Clear; Color Urine Yellow; Glucose Urine UA Negative (Negative); Leukocyte Esterase Urine Negative (Negative); Nitrite Urine Negative (Negative); PH 5.5 (5.0-9.0); Urine Blood Negative (Negative); Urine Ketones Negative (Negative); Urine Protein Negative (Neg-Trace)
--- NOTE | 2022-04-19 20:10 | ED.GENADULT ---
HPI - General Adult General Chief complaint: Abdominal Pain Stated complaint: heart burn, upper abd pain Time Seen by Provider: 04/19/22 19:55 Related Data Previous Rx's Medication Instructions Recorded ibuprofen 400 mg tablet 400 mg PO Q6H PRN pain #20 tabs 08/24/21 ondansetron 4 mg disintegrating 4 mg PO TID PRN nausea and 08/24/21 tablet vomiting 5 days #10 tabs oxycodone 5 mg tablet 5 mg PO Q8H PRN pain #7 tabs 08/24/21 tamsulosin 0.4 mg capsule (Flomax) 0.4 mg PO DAILY #7 caps 08/24/21 Allergies Allergy/AdvReac Type Severity Reaction Status Date / Time No Known Allergies Allergy Verified 01/20/22 22:55 [No Known Allergies*] [facility] Social History Social History Advance Directives: No Advance Directives Information Provided: No Physical Exam ED Vital Signs: Vital Signs - 24 hr 04/19/22 16:26 Temperature 98.9 F Pulse Rate 76 Respiratory Rate 18 Blood Pressure 133/81 Pulse Oximetry 100 Oxygen Delivery Method Room Air BMI result Body Mass Index 30.0 Medications Administered Discontinued Medications Generic Name Dose Route Start Last Admin Trade Name Freq PRN Reason Stop Dose Admin Al Hydroxide/Mg Hydroxide 30 ml 04/19/22 20:16 04/19/22 20:57 Magnesium Hydrox/Alum Hydrox 30 Ml Oral.Susp PO 04/19/22 20:17 30 ml ONCE ONE Administration Lorazepam 1 mg 04/19/22 20:16 04/19/22 20:57 Lorazepam 1 Mg Tablet PO 04/19/22 20:17 1 mg ONCE ONE Administration Omeprazole 40 mg 04/19/22 20:16 04/19/22 20:57 Omeprazole 40 Mg Capsule.Dr PO 04/19/22 20:17 40 mg ONCE ONE Administration Medical Decision Making Medical Decision Making MDM Narrative: Patient with complaint of indigestion/heartburn, for a week, as well as left lower abdomen and back pain. Patient has had kidney stones in the past but states that this current pain was not nearly as severe. EKG showed no concerning findings. Chest x-ray was negative. Abdominal ultrasound showed no concerning findings. Urinalysis was negative. Patient does have history of anxiety/panic attacks. The patient was treated with lorazepam, Maalox, and omeprazole and had improvement in her symptoms, left prior to re-evaluation/discharge Lab Data MDM Lab Attestation statement: I reviewed the patient's lab results. Result Diagrams: 04/19/22 17:16 04/19/22 17:16 Labs: Lab Results 04/19/22 04/19/22 04/19/22 Range/Units 17:15 17:15 17:16 WBC 6.0 (4.8-10.8) X10*3/uL RBC 4.35 (4.20-5.50) X10*6/uL Hgb 12.8 (12.0-16.0) g/dl Hct 37.9 (37.0-47.0) % MCV 87.1 (80.0-98.0) fL MCH 29.4 (27.0-33.0) pg MCHC 33.8 (31.0-35.0) g/dl RDW 12.5 (11.0-16.0) % Plt Count 252 (160-400) X10*3/uL MPV 10.2 (9.4-12.3) fL Immature Gran % (Auto) 0.3 (0.0-0.4) % Neut % (Auto) 55.3 (45-73) % Lymph % (Auto) 33.7 (20-40) % [place] % (Auto) 8.9 (2-11) % Eos % (Auto) 1.3 (0-4) % Baso % (Auto) 0.5 (0-2) % Lymph # (Auto) 2.0 (1.2-4.9) X10*3/uL [place] # (Auto) 0.5 (0.1-1.2) X10*3/uL Eos # (Auto) 0.1 (0.0-0.4) X10*3/uL Baso # (Auto) 0.0 (0.0-0.2) X10*3/uL Abs Immat Gran (auto) 0.02 (0.00-0.03) X10*3/uL Absolute Neuts (auto) 3.3 (2.0-8.3) x10*3/uL Absolute Nucleated RBC 0.000 (0.0-0.012) X10*3/uL Nucleated RBC % (auto) 0.0 (0.0-0.2) /100WBC PT 13.2 H (10.0-13.1) SEC INR 1.1 (0.9-1.1) Sodium (135-145) mmol/L Potassium (3.3-5.1) mmol/L Chloride (96-108) mmol/L Carbon Dioxide (22-29) mmol/L Anion Gap (12-20) BUN (9-16) mg/dL Creatinine (0.5-1.4) mg/dL Estim Creat Clear Calc Estimated GFR Random Glucose (60-115) mg/dL Calcium (8.4-10.2) mg/dL Magnesium (1.6-2.6) mg/dL Total Bilirubin (0.0-1.0) mg/dL AST (5-31) U/L ALT (0-31) U/L Alkaline Phosphatase (39-117) U/L Total Protein (6.5-8.0) g/dL Albumin (3.5-5.0) g/dL Lipase 8 (8-78) U/L Beta HCG, Quant < 2 mIU/mL Urine Color Urine Appearance Urine pH (5.0-9.0) Ur Specific [place] (1.005-1.025) Urine Protein (Neg-Trace) mg/dL Urine Glucose (UA) (Negative) mg/dL Urine Ketones (Negative) mg/dL Urine Blood (Negative) Urine Nitrite (Negative) Ur Leukocyte Esterase (Negative) Influenza Type A (PCR) (Negative) Influenza Type B (PCR) (Negative) RSV RNA Qual (PCR) (Negative) SARS-CoV-2 RNA (RT-PCR) (Negative) 04/19/22 04/19/22 04/19/22 Range/Units 17:16 17:16 17:52 WBC (4.8-10.8) X10*3/uL RBC (4.20-5.50) X10*6/uL Hgb (12.0-16.0) g/dl Hct (37.0-47.0) % MCV (80.0-98.0) fL MCH (27.0-33.0) pg MCHC (31.0-35.0) g/dl RDW (11.0-16.0) % Plt Count (160-400) X10*3/uL MPV (9.4-12.3) fL Immature Gran % (Auto) (0.0-0.4) % Neut % (Auto) (45-73) % Lymph % (Auto) (20-40) % [place] % (Auto) (2-11) % Eos % (Auto) (0-4) % Baso % (Auto) (0-2) % Lymph # (Auto) (1.2-4.9) X10*3/uL [place] # (Auto) (0.1-1.2) X10*3/uL Eos # (Auto) (0.0-0.4) X10*3/uL Baso # (Auto) (0.0-0.2) X10*3/uL Abs Immat Gran (auto) (0.00-0.03) X10*3/uL Absolute Neuts (auto) (2.0-8.3) x10*3/uL Absolute Nucleated RBC (0.0-0.012) X10*3/uL Nucleated RBC % (auto) (0.0-0.2) /100WBC PT (10.0-13.1) SEC INR (0.9-1.1) Sodium 140 (135-145) mmol/L Potassium 4.6 D (3.3-5.1) mmol/L Chloride 106 (96-108) mmol/L Carbon Dioxide 26 (22-29) mmol/L Anion Gap 13 (12-20) BUN 10 (9-16) mg/dL Creatinine 0.71 (0.5-1.4) mg/dL Estim Creat Clear Calc 112.7 Estimated GFR > 60 Random Glucose 79 (60-115) mg/dL Calcium 9.3 (8.4-10.2) mg/dL Magnesium 2.2 (1.6-2.6) mg/dL Total Bilirubin 0.4 (0.0-1.0) mg/dL AST 18 (5-31) U/L ALT 15 (0-31) U/L Alkaline Phosphatase 88 (39-117) U/L Total Protein 7.6 (6.5-8.0) g/dL Albumin 4.7 (3.5-5.0) g/dL Lipase (8-78) U/L Beta HCG, Quant mIU/mL Urine Color Yellow Urine Appearance Clear Urine pH 5.5 (5.0-9.0) Ur Specific [place] 1.010 (1.005-1.025) Urine Protein Negative (Neg-Trace) mg/dL Urine Glucose (UA) Negative (Negative) mg/dL Urine Ketones Negative (Negative) mg/dL Urine Blood Negative (Negative) Urine Nitrite Negative (Negative) Ur Leukocyte Esterase Negative (Negative) Influenza Type A (PCR) NEGATIVE (Negative) Influenza Type B (PCR) NEGATIVE (Negative) RSV RNA Qual (PCR) NEGATIVE (Negative) SARS-CoV-2 RNA (RT-PCR) NEGATIVE (Negative) Independent Interpretation I performed an independent interpretation of an: EKG Interpretation: Sinus rhythm with a rate of 76. Nonspecific T-wave abnormality. When compared to EKG from January 20 2022 T-wave abnormality improved and lateral leads and QT has shortened Radiology Impression Discussion of test interpretation with radiology: I have reviewed the radiologist's reading. Radiologist Impression: Abdominal ultrasound, limited by obesity, no acute findings. Chest x-ray: Unremarkable examination Discharge Plan Discharge Clinical Impression: Indigestion, Abdominal pain Patient Disposition: Home, Self-Care Instructions: Indigestion (ED), Abdominal Pain (ED) Additional Instructions: Use antacid such as Maalox. Follow up with your primary care physician. Prescriptions: No Action tamsulosin [Flomax] 0.4 mg capsule 0.4 mg PO DAILY Qty: 7 0RF ibuprofen 400 mg tablet 400 mg PO Q6H PRN (Reason: pain) Qty: 20 0RF ondansetron 4 mg tablet,disintegrating 4 mg PO TID PRN (Reason: nausea and vomiting) 5 Days Qty: 10 0RF oxycodone 5 mg tablet 5 mg PO Q8H PRN (Reason: pain) Qty: 7 0RF Discharge Date/Time: 04/19/22 22:05
[2022-04-19] MEDS: LORazepam 1 MG TABLET PO (20:57)
[2022-04-19] MEDS: Magnesium Hydrox/Alum Hydrox 30 ML ORAL.SUSP PO (20:57)
[2022-04-19] MEDS: Omeprazole 40 MG CAPSULE.DR PO (20:57)
--- NOTE | 2022-04-19 21:01 | PC.NURSE ---
pt alert pleasant and cooperative. medicated according to MAR, awaiting eval/DC
== END 2022-04-19 22:05 | disposition home or self-care (01) ==
PROVIDERS: Physician Assistant Medical; Emergency Provider Emergency Medicine
DX: K30 Functional dyspepsia (principal); M54.50 Low back pain, unspecified; R07.81 Pleurodynia; Z20.822 Contact with and (suspected) exposure to COVID-19; Z79.899 Other long term (current) drug therapy
CPT/HCPCS: 0241U; 36415; 71046; 76705; 80053; 81003; 83690; 83735; 84702; 85025; 85610; 93005; 99283

== ENCOUNTER 2023-12-13 16:55 | Emergency (ER) | payer OTHER, SELFPAY ==
--- NOTE | ~2023-12-13 | CT_ITS ---
EXAMINATION: CT SOFT TISSUE NECK WITHOUT CONTRAST CLINICAL INFORMATION: Possible foreign body in throat COMPARISON: None available. TECHNIQUE: Helical imaging was performed in the axial plane with generation of coronal and sagittal reformatted images. This CT examination was performed using dose optimization techniques as appropriate, variously including the following: *Automated exposure control *Adjustment of mA and/or kV according to patient size (this includes techniques or standardized protocols for targeted exams where dose is matched to indication/reason for exam; i.e. extremities or head) *Use of iterative reconstruction technique DLP: 400 mGy-cm FINDINGS: Streak artifact related to permanent/non-removable necklace with somewhat limits assessment of the soft tissues of the neck. Nasopharynx/skull base: The fat planes of the skull base and soft tissues of the nasopharynx are unremarkable. Mild left maxillary sinus mucosal thickening. The mastoid air cells are well aerated. The temporomandibular joints are normal. Suprahyoid neck: The oropharynx, oral cavity, and bilateral salivary gland tissues are unremarkable. Infrahyoid neck: The hypopharynx and larynx are unremarkable. No aerodigestive tract mass. Thyroid: Not well visualized due to streak artifact.. Lymph nodes: There is no cervical chain lymphadenopathy. Lung apices: The partially visualized lung apices are clear. Osseous structures: The osseous structures are intact without suspicious focal lesion. Other: The imaged portions of the brain parenchyma are unremarkable. CT/CT soft tissue neck wo IV con IMPRESSION: Unremarkable noncontrast CT of the neck. No radiopaque foreign body is identified.
[2023-12-13 17:03] VITALS: BP 129/84; PULSE 95; RESP 18; TEMP 36.6; O2SAT 99; BMI 21.8
--- NOTE | 2023-12-13 17:04 | ED.GENADULT ---
HPI - General Adult General Chief complaint: General Medical Stated complaint: piece of wrapped stuck in throat Time Seen by Provider: 12/13/23 19:19 Source: patient Mode of arrival: ambulatory Limitations: no limitations History of Present Illness ED Provider: JONO HANDLEY narrative: 38 yo female no PMH here with c/o accidentally swallowing small corner of foil packet of a soy sauce like packet today she has pain in her throat with swallowing no drooling, change in voice, difficulty speaking. No abdominal pain , coughing up blood. Worried the piece is stuck in her throat. MD complaint: FB throat Onset (ago): hour(s) (few) Location: mouth Radiation: non-radiation Severity: moderate Quality: stabbing Pain Consistency: intermittent Relieving factors: none Exacerbating factors: other (swallowing) Associated symptoms: denies other symptoms Treatments prior to arrival: none Related Data Previous Rx's ?Medication ?Instructions ?Recorded ibuprofen 400 mg tablet 400 mg PO Q6H PRN pain #20 tabs 08/24/21 ondansetron 4 mg disintegrating 4 mg PO TID PRN nausea and 08/24/21 tablet vomiting 5 days #10 tabs oxycodone 5 mg tablet 5 mg PO Q8H PRN pain #7 tabs 08/24/21 tamsulosin 0.4 mg capsule (Flomax) 0.4 mg PO DAILY #7 caps 08/24/21 Magic Mouthwash 5 ml PO TID #240 mL 12/13/23 Diphen/Lido/Antacid 1:1:1 240 mL suspension Allergies Allergy/AdvReac Type Severity Reaction Status Date / Time No Known Allergies Allergy Verified 12/13/23 17:08 [No Known Allergies*] Review of Systems Review of Systems: Constitutional : No Fever, No Chills, No Fatigue ENT/Mouth : pos sore throat, No Rhinorrhea Eyes: No Eye Pain, No Swelling, No Redness Cardiovascular : No Chest Pain, No SOB, No Dyspnea on Exertion Respiratory : No Cough, No Sputum Gastrointestinal : No Nausea, No Vomiting, No Diarrhea, No abdominal Pain Genitourinary : No Dysuria, No Urinary Frequency, No Hematuria, Musculoskeletal : No joint pain, No Myalgias, No Joint Swelling Skin : No Skin Lesions, No rash Neuro : No Weakness, No Numbness, No Dizziness, no Headache All other systems reviewed and are negative PMFSH Past Medical History Attestation statement: The following information was validated with the patient. Source: old records reviewed Medical History No pertinent past medical history Social History Social History (Updated 12/13/23 @ 19:39 by Jacqueline Quan DO) Patient Tobacco Use Status: Tobacco use Unknown Physical Exam ED Vital Signs: Vital Signs - 24 hr 12/13/23 17:03 Temperature 97.9 F Pulse Rate 95 Respiratory Rate 18 Blood Pressure 129/84 Pulse Oximetry 99 Oxygen Delivery Method Room Air BMI result Body Mass Index 21.8 Appearance: Alert. Oriented X3. No acute distress. Eyes: Pupils equal, round and reactive to light. ENT: Pharynx normal. No blood noted, no stridor, no drooling, normal phonate Neck: Normal inspection. Neck supple. no hyoid ttp no crepitus felt CVS: Normal heart rate and rhythm. Pulses normal. Respiratory: No respiratory distress. Breath sounds normal. Abdomen: atraumatic Skin: Skin warm and dry. Normal skin color. Extremities: No lower extremity edema. Neuro: Oriented X 3. No motor deficit. No sensory deficit. Course Course Course Narrative: RME performed by Brooke Orellana PA-C. Patient is a 38 year old assigned female at presenting to the emergency department with the corner of a meal packet stuck in throat. Patient states she was eating when she thinks she accidentally ate the corner of a wrapper. Patient states that her throat hurts and it might be stuck. Detailed physical exam and review of systems are deferred to the oral surgery assistant. Imaging ordered. Patient placed back in the waiting room pending room availability and results. Medical Decision Making Medical Decision Making MDM Narrative: 38 yo female with no sig PMH not on thinners swallowed small corner of soy sauce like packet has no abdominal pain c/o sore throat normal exam normal voice, no drooling, no stridor no crepitus at this time CT Scan negative for FB, suspect based off size she will pass this sent home with precautions to return, magic mouthwash for pain. Differential Diagnosis Differential Diagnoses: The differential diagnosis associated with the presentation includes FB ingestion, abrasion to esophagus Admission/Observation Consideration of admission/observation: Escalation of care including admission/observation considered not toxic, no red flags suspect she will pass this given size given precautions to return Lab Data MDM Lab Attestation statement: I reviewed the patient's lab results. 12/13/23 17:17 12/13/23 17:17 Labs: Lab Results 12/13/23 Range/Units 17:17 WBC 7.5 (4.8-10.8) X10*3/uL RBC 4.01 L (4.20-5.50) X10*6/uL Hgb 12.3 (12.0-16.0) g/dl Hct 35.3 L (37.0-47.0) % MCV 88.0 (80.0-98.0) fL MCH 30.7 (27.0-33.0) pg MCHC 34.8 (31.0-35.0) g/dl RDW 12.2 (11.0-16.0) % Plt Count 232 (160-400) X10*3/uL MPV 10.3 (9.4-12.3) fL Immature Gran % (Auto) 0.1 (0.0-0.4) % Neut % (Auto) 60.1 (45-73) % Lymph % (Auto) 27.7 (20-40) % [place] % (Auto) 10.1 (2-11) % Eos % (Auto) 1.5 (0-4) % Baso % (Auto) 0.5 (0-2) % Lymph # (Auto) 2.1 (1.2-4.9) X10*3/uL [place] # (Auto) 0.8 (0.1-1.2) X10*3/uL Eos # (Auto) 0.1 (0.0-0.4) X10*3/uL Baso # (Auto) 0.0 (0.0-0.2) X10*3/uL Abs Immat Gran (auto) 0.01 (0.00-0.03) X10*3/uL Absolute Neuts (auto) 4.5 (2.0-8.3) x10*3/uL Absolute Nucleated RBC 0.000 (0.0-0.012) X10*3/uL Nucleated RBC % (auto) 0.0 (0.0-0.2) /100WBC Sodium 139 (135-145) mmol/L Potassium 3.9 (3.3-5.1) mmol/L Chloride 107 (96-108) mmol/L Carbon Dioxide 23 (22-29) mmol/L Anion Gap 13 (12-20) BUN 15 (9-16) mg/dL Creatinine 0.78 (0.5-1.4) mg/dL Estim Creat Clear Calc 86.0 Estimated GFR > 60 Random Glucose 100 (60-115) mg/dL Calcium 9.3 (8.4-10.2) mg/dL Total Bilirubin 0.6 (0.0-1.0) mg/dL AST 16 (5-31) U/L ALT 12 (0-31) U/L Alkaline Phosphatase 51 (39-117) U/L Total Protein 7.1 (6.5-8.0) g/dL Albumin 4.3 (3.5-5.0) g/dL Beta HCG, Quant < 2 mIU/mL Independent Interpretation I performed an independent interpretation of an: CT Scan (no FB) Radiology Impression Discussion of test interpretation with radiology: I have reviewed the radiologist's reading. Prescription Management I considered prescription management with: Other Discharge Plan Discharge Clinical Impression: Foreign body ingestion Qualifiers: Encounter type: initial encounter Qualified Code(s): T18.9XXA - Foreign body of alimentary tract, part unspecified, initial encounter Patient Disposition: Home, Self-Care Instructions: Foreign Body Ingestion (ED) Additional Instructions: return for severe abdominal pain, chest pain, bloody stools, vomiting avoid spicy foods, aspirin, acidic foods for the next [address]/CT soft tissue neck wo IV con IMPRESSION: Unremarkable noncontrast CT of the neck. No radiopaque foreign body is identified Prescriptions: New Magic Mouthwash Diphen/Lido/Antacid 1:1:1 240 mL suspension 5 ml PO TID Qty: 240 0RF Rx Instructions: Lidocaine Viscous 2 % 80mL; diphenhydramine 12.5 mg/5 mL 80mL; aluminum-mag hydrox-simeth [id number]/5mL 80mL No Action tamsulosin [Flomax] 0.4 mg capsule 0.4 mg PO DAILY Qty: 7 0RF ibuprofen 400 mg tablet 400 mg PO Q6H PRN (Reason: pain) Qty: 20 0RF ondansetron 4 mg tablet,disintegrating 4 mg PO TID PRN (Reason: nausea and vomiting) 5 Days Qty: 10 0RF oxycodone 5 mg tablet 5 mg PO Q8H PRN (Reason: pain) Qty: 7 0RF Print Language: Haitian
[2023-12-13 17:21] LABS: MANUAL DIFF FLAG NO
[2023-12-13 17:45] LABS: Basophils Percent Auto 0.5 % (0-2); Eosinophils Absolute Auto 0.1 X10*3/uL (0.0-0.4); Eosinophils Percent Auto 1.5 % (0-4); Hematocrit 35.3 % (37.0-47.0); Hemoglobin 12.3 g/dl (12.0-16.0); Imm Gran Abs Auto 0.01 X10*3/uL (0.00-0.03); Imm Gran Pct Auto 0.1 % (0.0-0.4); Lymphocytes Absolute Auto 2.1 X10*3/uL (1.2-4.9); Lymphocytes Percent Auto 27.7 % (20-40); Mean Corpuscular HGB Conc 34.8 g/dl (31.0-35.0); Mean Corpuscular Hemoglobin 30.7 pg (27.0-33.0); Mean Platelet Volume 10.3 fL (9.4-12.3); Monocytes Absolute Auto 0.8 X10*3/uL (0.1-1.2); Monocytes Percent Auto 10.1 % (2-11); Neutrophils Absolute Auto 4.5 x10*3/uL (2.0-8.3); Neutrophils Percent Auto 60.1 % (45-73); Platelet Count 232 X10*3/uL (160-400); Red Blood Count 4.01 X10*6/uL (4.20-5.50); Red Cell Distribution Width 12.2 % (11.0-16.0); White Blood Count 7.5 X10*3/uL (4.8-10.8)
[2023-12-13 17:46] LABS: Alanine Aminotransferase 12 U/L (0-31); Albumin Level 4.3 g/dL (3.5-5.0); Alkaline Phosphatase 51 U/L (39-117); Anion Gap 13 (12-20); Aspartate Amino Transferase 16 U/L (5-31); Bilirubin Total 0.6 mg/dL (0.0-1.0); Blood Urea Nitrogen 15 mg/dL (9-16); Calcium 9.3 mg/dL (8.4-10.2); Carbon Dioxide 23 mmol/L (22-29); Chloride 107 mmol/L (96-108); Estimated Glomerular Filt Rate > 60; Glucose Random 100 mg/dL (60-115); HCG Quantitative < 2 mIU/mL; Potassium 3.9 mmol/L (3.3-5.1); Sodium 139 mmol/L (135-145); Total Protein 7.1 g/dL (6.5-8.0)
[2023-12-13] MEDS: Lidocaine HCl Viscous 2 % 15 ML SOLUTION MUCOUS MEM (19:38)
[2023-12-13 19:45] VITALS: BP 122/84; PULSE 78; RESP 18; TEMP 36.8; O2SAT 100
--- NOTE | 2023-12-13 19:49 | PC.NURSE ---
Pt eval by provider, medicated per MAR and cleared for dc home.
[2023-12-13 19:50] VITALS: BP 122/84; PULSE 78; RESP 18; TEMP 36.8; O2SAT 100
== END 2023-12-13 19:50 | disposition home or self-care (01) ==
PROVIDERS: Physician Assistant Medical; Emergency Provider Emergency Medicine
DX: T17.298A Other foreign object in pharynx causing other injury, initial encounter (principal); W44.9XXA Unspecified foreign body entering into or through a natural orifice, initial encounter; Y93.89 Activity, other specified; Y92.89 Other specified places as the place of occurrence of the external cause; Y99.8 Other external cause status; Z79.899 Other long term (current) drug therapy
CPT/HCPCS: 36415; 70490; 80053; 84702; 85025; 99282; 99284